=== PATIENT | male | born 1955 | race Caucasian/White ===

== ENCOUNTER → 2020-10-02 | Outpatient (CLI) | payer OTHER | LOC: NM 09-30 08:10 → CT 09-30 15:30 → NM 07:40 | DX: C61 Malignant neoplasm of prostate (principal); Z79.899 Other long term (current) drug therapy; R94.8 Abnormal results of function studies of other organs and systems; Z96.641 Presence of right artificial hip joint | CPT/HCPCS: 78306; A9503 ==

== ENCOUNTER → 2020-10-16 | Outpatient (CLI) | payer OTHER | LOC: EXRD 09-25 14:00 | DX: C61 Malignant neoplasm of prostate (principal); D64.9 Anemia, unspecified; Z79.899 Other long term (current) drug therapy; M85.88 Other specified disorders of bone density and structure, other site | CPT/HCPCS: 77080 ==

== ENCOUNTER → 2020-12-02 | Outpatient (CLI) | payer OTHER | LOC: MRI 12:49 | DX: S32.302A Unspecified fracture of left ilium, initial encounter for closed fracture (principal); R93.7 Abnormal findings on diagnostic imaging of other parts of musculoskeletal system | CPT/HCPCS: 73723; A9577 ==

== ENCOUNTER → 2021-01-28 | Outpatient (CLI) | payer OTHER | LOC: NM 09:55 | DX: C61 Malignant neoplasm of prostate (principal); R93.6 Abnormal findings on diagnostic imaging of limbs; R93.7 Abnormal findings on diagnostic imaging of other parts of musculoskeletal system | CPT/HCPCS: 78306; A9503 ==

== ENCOUNTER → 2022-02-18 | Outpatient (CLI) | payer OTHER | LOC: KOH-I 09:09 | DX: M87.9 Osteonecrosis, unspecified (principal); M16.12 Unilateral primary osteoarthritis, left hip | CPT/HCPCS: 73700 ==

== ENCOUNTER → 2022-05-05 | Outpatient (CLI) | payer OTHER ==
[~2022-05-05] MED LIST: ARTHRITIS PAIN650 M2 PO; CENTRUM SILVER1 EAC2 PO; FOLIC ACID1 MG PO; MAGNESIUM400 M2 PO; METOPROLOL TART25 MG PO; NORVASC10 MG PO; TURMERIC500 M2 PO; VITAMIN B-121000 MCG PO
[2022-05-05 14:01] LABS: HEMOGLOBIN 13.2 gm/dl (14.0-17.5); RED BLOOD COUNT 4.49 M/UL (4.20-5.50); WHITE BLOOD COUNT 6.5 K/UL (4.5-11.0)
== END ==
LOC: OPSV2 12:17 → EDSTATUS 12:30 → OPSV2 12:30
PROVIDERS: Orthopaedic Surgery
DX: Z01.818 Encounter for other preprocedural examination (principal)
CPT/HCPCS: 71046; 80048; 85027; 93005